=== PATIENT | female | born 1995 ===

== ENCOUNTER 2018-04-26 09:14 | Emergency (ER) | payer OTHER ==
[~2018-04-26] VITALS: Ht 152.4 cm; Wt 69.0 kg
[2018-04-26] MEDS ORDERED: Verotin-Gr Cap1 EACH PO (09:35)
[2018-04-26 11:24] LABS: Source, Urine Clean Catch
[2018-04-26 11:53] LABS: Appearance, Urine Clear (Clear); Bilirubin, Urine Neg (Neg); Blood, Urine Neg (Neg); Color, Urine Yellow (P-Yellow); Glucose Qualitative, Urine Neg (Neg); Ketones, Urine 4+ (Neg); Leukocyte Esterase, Urine 1+ (Neg); Nitrite, Urine Neg (Neg); Protein, Urine 1+ (Neg); Specific Gravity, Urine 1.025 (1.003-1.022); Urobilinogen, Urine NORM (Normal)
[2018-04-26 12:01] LABS: Bacteria Few /hpf; Red Blood Cells, Urine 0-2 /hpf (0-2); Squamous Epithelial Cells Mod /hpf (Few)
== END 2018-04-26 12:20 | disposition home or self-care (01) ==
LOC: ER 09:14
PROVIDERS: Physician Assistant
DX: O99.89 Other specified diseases and conditions complicating pregnancy, childbirth and the puerperium (principal); R55 Syncope and collapse; Z3A.09 9 weeks gestation of pregnancy; Z87.891 Personal history of nicotine dependence
CPT/HCPCS: 81001; 87086; 96360; 99284-25; J7030